=== PATIENT | male | born 1945 | race Caucasian/White ===

== ENCOUNTER → 2025-01-15 07:14 | Outpatient (REF) | payer MEDICARE, OTHER, SELFPAY ==
[2025-01-15 08:58] LABS: Hematocrit 40.2 % (39.0-52.0); Mean Corp Hgb Conc. 32.3 g/dL (33.0-37.0); Mean Corpuscular Hgb 28.5 pg (27.0-31.0); Mean Corpuscular Volume 88.2 fL (80.0-94.0); Mean Platelet Volume 10.8 fL (7.4-10.4); Platelet Count 246 10^3/uL (130-400); Red Blood Cell Count 4.56 10^6/uL (4.70-6.10); Red Cell Dist. Width 13.4 % (11.5-14.5); White Blood Cell Count 5.8 10^3/uL (4.8-10.8)
[2025-01-15 09:41] LABS: Blood Urea Nitrogen 51 mg/dl (9-20); Calcium 9.7 mg/dl (8.4-10.2); Carbon Dioxide 27 mmol/L (22-30); Chloride 103 mmol/L (98-107); Glucose 89 mg/dl (70-99); Potassium 4.5 mmol/L (3.5-5.1); Sodium 144 mmol/L (135-145); eGFR 19.82
== END ==
LOC: SDSPAT 07:14
PROVIDERS: ATTENDING PHYSICIAN Surgery; FAMILY PHYSICIAN Family Medicine
DX: Z01.818 Encounter for other preprocedural examination (principal)
CPT/HCPCS: 80048; 85027

== ENCOUNTER 2025-01-22 06:13 | Day surgery (SDC) | payer MEDICARE, OTHER, SELFPAY ==
[2025-01-15 13:05] VITALS: BMI 39.7
--- NOTE | 2025-01-19 09:03 | PTCARENOTE ---
Abn BUN/Creatinine, Kathrine at Dr. Ayala's office made aware.
[2025-01-22] VITALS (13 sets, daily range): BP systolic 110–153; BP diastolic 44–67; BMI 39.7
[2025-01-22] MEDS: NORMOSOL-R/PLASMALYTE-A 1000 IV (12:36)
[2025-01-22 12:39] LABS: Glucose - Point of Care 99 mg/dl (70-99)
[2025-01-22] MEDS: LEVAQUIN 100 IV (13:10)
[2025-01-22 14:29] LABS: Glucose - Point of Care 99 mg/dl (70-99)
--- NOTE | 2025-01-22 14:30 | W.IMMPOSTOP ---
Surgical Immed Post Op Note
-
Primary Surgeon: Jamie
Pre-op Diagnosis: BPH with JULIEN, rUTIs
Post-op Diagnosis: Same
Procedure Performed: TURP
Anesthesia Type: LMA
Specimen / Cultures: Prostate chips/None
Estimated Blood Loss: Negligible
Drains: 22Fr 3-way catheter (30 cc sterile water in balloon)
Complications: None
Operative Findings: Obstructing lateral lobes resected to prostatic capsule. Widely patent prostatic urethral channel w/ appropriate hemostasis on final cystoscopy.
Bilateral UOs, verumontanum, external urethral sphincter uninvolved w/ margins of resection - intact on final cystoscopy.
--- NOTE | 2025-01-22 15:05 | CON.HOSP ---
Addendum entered and electronically signed by Beronica Kellogg DO 01/23/25 01:00:
The patient was seen and examined, at the request of urology, in consultation. I have discussed the patient with nurse practitioner Sharmin, and agree with her history and physical and assessment and plan of care as per below. The patient is a
79-year-old gentleman who is status post post TURP for BPH, with past medical history significant for CKD stage IV following with nephrology at [facility], mild bilateral hydronephrosis, BPH, Klebsiella UTI, urinary retention, diabetes,
hypothyroidism, essential hypertension, CAD status post stents, class II obesity obstructing lateral lobes resected, the procedure was without complications. The patient currently denies any nausea no vomiting no diarrhea no abdominal pain no chest
pain no shortness of breath no palpitations. He has a Yeung catheter with CBI in place draining pink-tinged urine.
Vital signs are stable and he is afebrile postoperatively
Physical exam
Cardiovascular regular rate and rhythm no murmurs rubs or gallops
Lungs clear to auscultation bilaterally no wheezes rales rhonchi
Abdomen soft nontender with no peritoneal signs
Repeat BMP is pending tonight
#Status post TURP for BPH with obstructing lateral lobes resected due to prostatic capsule
#History of Klebsiella UTI, history of urinary retention PVI greater than 400 several times over the past year
IV Rocephin, IV Levaquin is every 48 hour as per below, can give additional dose in 48 hours if the patient is not discharged tomorrow
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
-baseline creat is 2.5, repeat BMP pending, continue to monitor and renally dose medications
I agree with the additional assessment and plan of care as per below.
Thank you for the consultation, our hospitalist team will continue to follow along in the patient's care.
Original Note:
Family Physician
-
Family Physician: Kalli Steen
Chief Complaint
-
Status post TURP
History of Present Illness
79-year-old male status post TURP for BPH he had obstructing lateral lobes resected due to prostatic capsule. By Dr. Marquez. Patient awake alert oriented x 3 resting comfortably in the PACU has Yeung catheter draining strawberry tinged in color.
Patient denies headache, fever, chills, chest pain, palpitations, cough, shortness of breath, abdominal pain, nausea, vomiting, diarrhea. He has past medical history of CKD 4 follows with nephrology at [facility] Dr. Felix his creatinine range
has been in the mid twos with history of PVI greater than 400 several times over the past year and latest renal ultrasound February 2024 with mild bilateral hydronephrosis. He has past medical history of BPH, recurrent Klebsiella UTI, urinary retention,
CKD 4, DM 2, hypothyroidism, HTN, CAD status post stent, class II obesity.
Medical History
Past Medical History
Past Medical History: Reports Other
Additional Past Medical History:
BPH
recurrent Klebsiella UTI
urinary retention
CKD 4
DM 2
hypothyroidism
HTN
CAD status post stent
class II obesity.
Past Surgical History: Reports Other
Additional Past Surgical History:
CAD status post cardiac stent 2019 [place]
Right rotator cuff repair
Status post TURP for BPH today 01/22/2025
Social History
Tobacco: Non-smoker
Alcohol: None
Drug: None
Personal:
Living: With Family ( Leigh and adult son)
Employment: Retired
Family History
Family History: Other (Mother age 53 CHF, father unsure type of cancer)
Allergies / Home Medications
Allergies reflects when Allergies were last updated in [employer].
Home Medications with original date entered in [employer]
Allergy/Medication List:
Allergies
Allergy/AdvReac Type Severity Reaction Status Date / Time
metoprolol Allergy dizziness Verified 01/22/25 12:17
Home Medications
levothyroxine 112 mcg tablet 112 mcg PO DAILY Thyroid 12/23/19
B-complex with vitamin C 1 cap PO DAILY Supplement 04/14/21
amlodipine 2.5 mg tablet 2.5 mg PO DAILY Heart disease/condition 04/14/21
aspirin 81 mg tablet,delayed release 81 mg PO DAILY Blood clot prevention/tx 04/14/21
atorvastatin 40 mg tablet 40 mg PO DAILY High cholesterol 04/14/21
glimepiride 2 mg tablet 2 mg PO BID Diabetes 04/14/21
hydrochlorothiazide 25 mg tablet 25 mg PO DAILY Fluid retention/Swelling 04/14/21
multivitamin with folic acid 400 mcg tablet (Tab-A-Alfredo) 1 tab PO DAILY Supplement 04/14/21
tamsulosin 0.4 mg capsule 0.4 mg PO DAILY #30 caps 04/20/21
semaglutide 2 mg/dose (8 mg/3 mL) subcutaneous pen injector (Ozempic) 2 mg SC QWEEK 01/15/25
Review of Systems
-
History Source: Patient
A 12 point Review of Systems was completed except as noted: Yes
Constitutional: Denies Fever, Fatigue or Chills
EENT: Denies Sore Throat or Runny Nose
Respiratory: Denies Cough or Trouble Breathing
Cardiac: Denies Chest Pain, Diaphoresis or Palpitations
Abdomen/GI: Denies Abdominal Pain, Nausea, Vomiting or Diarrhea
: Reports Yeung (Present postop draining strawberry colored)
Musculoskeletal: Denies Joint Pain or Edema
Skin: Denies Itching or Rash
Neurological: Denies Dizzy, Headache or Weakness
Endocrine: Reports No Symptoms
Hematologic/Lymphatic: Reports No Symptoms
Psych: Reports Calm
Physical Exam
Vital Signs
Vital Signs
Temp Pulse Resp BP Pulse Ox
97.9 F 64 13 114/51 95
01/22/25 14:20 01/22/25 14:30 01/22/25 14:30 01/22/25 14:30 01/22/25 14:30
Physical Exam
General: Comfortable; Negative Pain, Fever or Chills
HEENT: Normocephalic, Anicteric, Moist Mucous Membranes and PERRLA
Respiratory: Clear; Negative Wheezes, Rales or Rhonchi
Cardiac: S1/S2, Regular Rhythm and Murmur (2/6 systolic murmur); Negative Rub or Peripheral Edema
Breast: Deferred by me
GI: Soft, Non Tender, Non Distended, Normal Bowel Sounds and No Hepatosplenomegaly
Rectal: Deferred by Provider
Genito-urinary: Yeung Catheter (Draining strawberry in color)
Musculoskeletal: No Clubbing, No Cyanosis and No Edema
Skin: Warm and Dry; Negative Rash
Neuro: AO x 3 and No Motor Deficits; Negative Slurred Speech, Facial Droop, Tremors or Sedated
Psych: Calm
Data Reviewed
-
Lab Data: Labs Reviewed
Impression / Plan
-
Impression/plan:
Medical consultation
Admitted to [facility] Dr. Marquez urology
#Status post TURP for BPH with obstructing lateral lobes resected due to prostatic capsule
#History of Klebsiella UTI, history of urinary retention PVI greater than 400 several times over the past year
- Monitor urine output
- Roxicodone as needed pain, continue Flomax 0.4 mg daily, Ultram 50 mg every 6 hours as needed pain
- Patient was given IV Levaquin 500 mg preop-would hold further as renal dosing would be 250 every 48 hours patient is observation going home tomorrow
-Will give IV Rocephin 1 g every 24 in a.m. to cover for preventative UTI
-Plan for Augmentin 500/ 125 every 12 hours x 5 days upon discharge per urology
-Hold aspirin 81 mg daily
- May have regular diet
-Patient's status post 1200 cc normal saline in OR
-Will check BMP 8 PM for improving creat from 3.1 as his baseline is 2.5 if elevated will give more NSS
- Plan for voiding trial in a.m.
- Check CBC and BMP in a.m.
- Patient follows with nephrology Dr. Felix in [facility] had renal ultrasound February 2024 showing mild hydro with PVR greater than 400 multiple times over the past year
#MEG w/ component of obstructive uropathy due to BPH on CKD 4
Creat 3.1/bun 51, GFR 19.8 prior labs creat 0.9 04/19/2021 per urologist his baseline creatinine has been 2.5 range
-Continue Yeung catheter status post TURP for BPH-will have void trial in a.m.
-Hold HCTZ 25 mg daily
Patient status post 1200 cc normal saline
-Check BMP at 8 PM
#DM 2
Accu-Cheks with SSI, check HgbA1c
Continue glimepiride 2 mg twice daily
-Patient on Ozempic 2 mg once a week
#HTN�benign
Continue amlodipine 2.5 mg daily
#Hypothyroidism
Continue levothyroxine 112 mcg p.o. daily
CAD status post cardiac stent [id number] [facility]
- Hold current aspirin due to TURP with strawberry tinged urine
- Continue statin
Class II obesity�BMI 39.7
Affects all aspects of care
Weight loss recommended patient is on Ozempic however has been on for 2 years
Recommend low-fat 1999 ADA diet
DVT prophylaxis
SCDs
Full code
[2025-01-22 16:43] LABS: Glucose - Point of Care 90 mg/dl (70-99)
[2025-01-22] MEDS: AMARYL 2 MG PO (20:20)
[2025-01-22 22:26] LABS: Blood Urea Nitrogen 44 mg/dl (9-20); Calcium 8.9 mg/dl (8.4-10.2); Carbon Dioxide 28 mmol/L (22-30); Chloride 99 mmol/L (98-107); Estimated Creatinine Clearance 29 ml/min; Glucose 122 mg/dl (70-99); Potassium 3.9 mmol/L (3.5-5.1); Sodium 141 mmol/L (135-145); eGFR 23.39
[2025-01-22 22:26] LABS: Glucose - Point of Care 105 mg/dl (70-99)
[2025-01-23] MEDS: ROXICODONE 5 MG PO (01:53)
[2025-01-23 03:33] VITALS: BP 131/58
[2025-01-23] MEDS: STERILE WATER FOR INJECTION 10 ML IV (04:03)
[2025-01-23] MEDS: ROCEPHIN 1000 MG IV (04:04)
[2025-01-23] MEDS: TYLENOL 650 MG PO (04:07)
[2025-01-23] MEDS: SYNTHROID 112 MCG PO (05:36)
--- NOTE | 2025-01-23 06:24 | W.PN.HOSP.TC ---
Today's Communication/Plan
-
Medically stable for discharge pending primary urology clearance
Assessment / Plan
Assessment / Plan
Physical Exam
General: Comfortable; Negative Pain, Fever or Chills
HEENT: Normocephalic, Anicteric, Moist Mucous Membranes and PERRLA
Respiratory: Clear; Negative Wheezes, Rales or Rhonchi
Cardiac: S1/S2, Regular Rhythm and Murmur (2/6 systolic murmur); Negative Rub or Peripheral Edema
GI: Soft, Non Tender, Non Distended, Normal Bowel Sounds and No Hepatosplenomegaly
Genito-urinary: Yeung Catheter (Draining strawberry in color)
Musculoskeletal: No Clubbing, No Cyanosis and No Edema
Skin: Warm and Dry; Negative Rash
Neuro: AO x 3 Conversant coherent
Psych: Calm
79M Obesity BPH recurrent UTI CKD4 DM Hypothyroidism HTN CAD stent here for TURP performed 01/22/25. Hospitalist service consulted for assistance medical mgmt.
#Status post TURP for BPH with obstructing lateral lobes resected due to prostatic capsule
- Monitor urine output
-Yeung CBI as per urology
- Roxicodone as needed pain, continue Flomax 0.4 mg daily, Ultram 50 mg every 6 hours as needed pain
- received IV Levaquin 500 mg preop-holding further dosing as renal dosing would be 250 every 48 hours
-received IV Rocephin 1 g every 24 in a.m. post-procedure infection prophylaxis
-Plan for Augmentin 500/ 125 every 12 hours x 5 days upon discharge per urology, agree
-ok to resume home aspirin 81 mg daily on discharge
#CKD 4
-reported baseline 2.5
-Cr 2.7-2.6 here, stable, no MEG
#DM 2
Continue glimepiride 2 mg twice daily
Patient on Ozempic 2 mg once a week
A1c 7.0 Diabetes appears to be well managed at this time
#HTN�benign
Continue amlodipine 2.5 mg daily
ok to resume home HCTZ on discharge
#Hypothyroidism
Continue levothyroxine 112 mcg p.o. daily
CAD status post cardiac stent [id number] [facility]
- ok to resume ASA 81 mg on discharge
- Continue statin
Class II obesity�BMI 39.7
Affects all aspects of care
Weight loss recommended patient is on Ozempic however has been on for 2 years
Recommend low-fat 2000 ADA diet
DVT prophylaxis
SCDs
Full code
Medically stable for discharge pending primary urology clearance
I spent a total of 40 minutes with the patient or on the floor. More than 50% of this time involved counseling and coordination of care.
Anticipated Discharge: Today
Subjective/Interval History
-
Date of Service: January 23, 2025
No acute distress sitting up comfortably in chair. Denies new acute issues at this time. Overall reports feeling well.
Objective Data
-
Labs:
Laboratory Results
01/22/25 01/23/25
21:14 05:58
WBC Pending
Hgb Pending
Hct Pending
Plt Count Pending
Sodium 141 Pending
Potassium 3.9 Pending
Chloride 99 Pending
Carbon Dioxide 28 Pending
BUN 44 H Pending
Creatinine 2.7 H Pending
Glucose 122 H Pending
Calcium 8.9 Pending
Vital Signs:
Vital Signs
Temp Pulse Resp BP Pulse Ox
100.7 F H 86 18 131/58 95
01/23/25 03:33 01/23/25 03:33 01/23/25 03:33 01/23/25 03:33 01/23/25 03:33
I&O
01/21/25 01/22/25 01/23/25
06:59 06:59 06:59
Intake Total 1260 / 1260
Output Total 2150 / 2150
Balance -890 / -890
[2025-01-23 06:41] LABS: % Basophils 0.3 % (0-2); % Eosinophils 0.6 % (0-6); % Immature Granulocytes 0.3 % (0-0.5); % Lymphocytes 7.3 % (20.5-51.1); % Monocytes 7.6 % (1.7-9.3); % Neutrophils 83.9 % (42.2-75.2); Absolute Eosinophils 0.1 10^3/uL (0-0.7); Absolute Lymphocytes 0.8 10^3/uL (1.2-3.4); Absolute Monocytes 0.8 10^3/uL (0.1-0.6); Absolute Neutrophils 9.2 10^3/uL (1.4-6.5); Mean Corp Hgb Conc. 33.3 g/dL (33.0-37.0); Mean Corpuscular Hgb 28.6 pg (27.0-31.0); Mean Corpuscular Volume 85.7 fL (80.0-94.0); Mean Platelet Volume 10.4 fL (7.4-10.4); Nucleated Red Blood Cells % 0 % (-); Platelet Count 225 10^3/uL (130-400); Red Cell Dist. Width 13.6 % (11.5-14.5)
[2025-01-23 07:07] LABS: Blood Urea Nitrogen 40 mg/dl (9-20); Calcium 8.7 mg/dl (8.4-10.2); Carbon Dioxide 22 mmol/L (22-30); Chloride 102 mmol/L (98-107); Estimated Creatinine Clearance 30 ml/min; Glucose 115 mg/dl (70-99); Potassium 4.6 mmol/L (3.5-5.1); Sodium 137 mmol/L (135-145); eGFR 24.48
[2025-01-23 07:30] VITALS: BP 123/49
[2025-01-23 08:55] LABS: Glucose - Point of Care 125 mg/dl (70-99)
[2025-01-23] MEDS: B COMPLEX w/VITAMIN C 1 CAPLET PO (09:21)
[2025-01-23] MEDS: NORVASC 2.5 MG PO (09:22)
[2025-01-23] MEDS: LIPITOR 40 MG PO (09:22)
[2025-01-23] MEDS: THERAGRAN 1 TABLET PO (09:23)
[2025-01-23] MEDS: FLOMAX 0.4 MG PO (09:23)
[2025-01-23] MEDS: AMARYL 2 MG PO (09:23)
[2025-01-23 11:25] VITALS: BP 122/57
--- NOTE | 2025-01-23 11:48 | CM ---
Patient seen at bedside. Patient dressed and waiting for lab results. Patient stated he is going home, is coming to transport and he has no needs. Per patient he lives in a 2 story home with no DME. Patient PCP Dr. Steen and he uses the [facility] in
[place] [facility] [address]. Patient stated he is independent of all adl's and IADL's. CM will continue to follow for discharge planning needs.
Plan; home with no needs anticipated.
[2025-01-23 12:43] LABS: Glucose - Point of Care 154 mg/dl (70-99)
[2025-01-23 15:15] VITALS: BP 128/54
== END 2025-01-23 15:25 | disposition home or self-care (01) ==
LOC: SDS 06:13
PROVIDERS: Clinical Nurse Specialist Family Health; ATTENDING PHYSICIAN Surgery; CONSULT PHYSICIAN Internal Medicine; FAMILY PHYSICIAN Family Medicine
DX: N40.1 Benign prostatic hyperplasia with lower urinary tract symptoms (principal); N41.9 Inflammatory disease of prostate, unspecified; N32.0 Bladder-neck obstruction; N13.8 Other obstructive and reflux uropathy; Z87.440 Personal history of urinary (tract) infections
CPT/HCPCS: 52601; 88305; 80048; 82962; 83036; 85025